=== PATIENT | female | born 1970 | race Caucasian/White ===

== ENCOUNTER 2018-05-23 10:58 | Emergency (ER) | payer OTHER, BC ==
[~2018-05-23] VITALS: Ht 165.1 cm; Wt 68.0 kg
[2018-05-23 11:02] VITALS: BP_SYST 112
[2018-05-23] MEDS ORDERED: CYCLOBENZAPRINE HCL 10 MG TABLET (FLEXERIL) PO ONE ×2 (11:15→12:30)
[2018-05-23] MEDS ORDERED: IBUPROFEN 600 MG TABLET PO ONE (11:15)
[2018-05-23] MEDS ORDERED: KETOROLAC TROMETHAMINE 30 MG VIAL IM ONE (11:45)
[2018-05-23] MEDS ORDERED: MORPHINE 4 MG/ML INJ. SYRINGE IM ONE ×2 (12:30→15:15)
[2018-05-23 14:53] VITALS: BP_SYST 110
== END 2018-05-23 15:01 | disposition home or self-care (01) ==
LOC: SED 10:58
DX: S39.012A Strain of muscle, fascia and tendon of lower back, initial encounter (principal); X58.XXXA Exposure to other specified factors, initial encounter; Y93.89 Activity, other specified; Y92.89 Other specified places as the place of occurrence of the external cause; Y99.8 Other external cause status
CPT/HCPCS: 72100; 96372; 99283; J1885; J2270